=== PATIENT | male | born 1990 | race Caucasian/White ===

== ENCOUNTER 2016-07-25 08:26 | Day surgery (SDC) | payer OTHER ==
[~2016-07-25 08:26] MED LIST: Buffered Lidocaine 1% SYR 3ML* 3 ML/SYR SYRINGE INTRADERM ONE; Sodium Citrate/Citric Acid* 15 ML UDC PO ONE
[2016-07-25] MEDS ORDERED: Oxymetazoline 0.05% NASAL SPR* 15 ML BTL ONE ×2 (09:07→09:35)
[2016-07-25] MEDS ORDERED: Sodium Citrate/Citric Acid* 15 ML UDC ONE (09:07)
[2016-07-25] MEDS ORDERED: Lidocain 1% EPI 1:100,000 * 30 ML MDV ONE (09:35)
[2016-07-25] MEDS ORDERED: Lidocaine 4% TOPICAL* 50 ML TOP.SOLN ONE (09:35)
[2016-07-25] MEDS ORDERED: Succinylcholine* 20 MG/ML 10 ML VIAL ONE (09:47)
[2016-07-25] MEDS ORDERED: Propofol* 10 MG/ML 20 ML BTL IV PUSH ONE (09:47)
[2016-07-25] MEDS ORDERED: Lidocaine 2% PF * 5 ML VIAL ONE (09:47)
[2016-07-25] MEDS ORDERED: Midazolam* 1 MG/ML 2 ML VIAL (2 MG) ONE (09:48)
[2016-07-25] MEDS ORDERED: fentaNYL* 50 MCG/ML 2 ML VIAL (100 MCG VIAL) ONE (09:48)
[2016-07-25] MEDS ORDERED: Ondansetron INJ* 2 MG/ML VIAL IV PRN (10:19)
[2016-07-25] MEDS ORDERED: fentaNYL* 50 MCG/ML 2 ML VIAL (100 MCG VIAL) IV PRN (10:19)
[2016-07-25] MEDS ORDERED: Bacitracin OINTMENT* 1 TUBE ONE (10:52)
[2016-07-25] MEDS ORDERED: Ibuprofen TAB* 400 MG ONE (11:40)
[2016-07-25 11:59] VITALS: BP 131/89
--- NOTE | 2016-07-25 22:20 | OP ---
DATE OF OPERATION: 07/25/16 [facility] DATE OF : [birth year] SURGEON: Leonardo Silveira MD BOOK JOGGER: None. ANESTHESIOLOGIST: Raymundo Pittman DO ANESTHESIA: General. PRE-OP DIAGNOSIS: Deviated nasal septum and bilateral inferior turbinate hypertrophy. POST-OP DIAGNOSIS: Deviated nasal septum and bilateral inferior turbinate hypertrophy. OPERATIVE PROCEDURE: Septoplasty with bilateral outfracture and cautery of the inferior turbinates. ESTIMATED BLOOD LOSS: Less than 20 cc. SPECIMENS: None. Septal cartilage and bone was discarded. FINDINGS: Deviated septum, bilateral inferior turbinate hypertrophy. INDICATIONS: This is a 26-year-old male with longstanding nasal airway obstruction and allergic rhinitis who has been medically managed, but has persistent nasal dyspnea due to structural factors. The decision was made to proceed with septoplasty and bilateral inferior turbinate reduction. DESCRIPTION OF PROCEDURE: On 07/25/16, the patient was brought to the operating room. General anesthesia was induced and oral endotracheal tube was placed. A timeout was performed after the patient was draped. Both nasal cavities had been decongested with Afrin in holding area. 1% lidocaine with epinephrine had been infiltrated into both sides of the nasal septum as well as the columella and both inferior turbinates. A total of approximately 10 cc was used. Once adequate time had been allotted for vasoconstriction, the procedure was begun. A left hemitransfixion incision was made. A left mucoperichondrial flap was then elevated with a John elevator. There was a small fenestration in the flap overlying what was a spur near the floor of the septum. The cartilaginous septum was then incised vertically approximately 1 cm posterior to its caudal edge. This enabled access to the right submucoperichondrial space and a right mucoperichondrial flap was elevated with the septum isolated and mucoperichondrial flaps elevated bilaterally. A combination of instruments including a Joseph Swivel knife and double action rongeur were used to remove the deviated portions of septal cartilage and bone. Once this was achieved, a single large piece of cartilage was selected, trimmed and morselized. This was then used to reconstruct the central portion of the septum. The mucoperichondrial flaps were laid back down on this now straight cartilaginous septum and were sutured in place with 4-0 gut using a quilting stitch. The hemitransfixion incision was then closed with 4-0 chromic. At this point, the turbinates were addressed, they were infractured. They were infiltrated with 1% lidocaine with epinephrine. Multiple passes were made through each turbinate with the Elmed bipolar device. The turbinates were then outfractured. Splints were then placed on either side of the septum. These were then sutured in position with 4-0 nylon and a bacitracin ointment was applied. A drip pad was applied as well. The patient was then returned to the care of the anesthesiologist, extubated, and delivered to the PACU in stable condition. [id number]/[facility] #: [id number] JUAN C
== END 2016-07-25 13:00 | disposition home or self-care (01) ==
LOC: OR 08:26
PROVIDERS: ATTEND Otolaryngology
DX: J34.2 Deviated nasal septum (principal); J34.3 Hypertrophy of nasal turbinates
CPT/HCPCS: A9270-GY; J0330; J2250; J2704; J3010